=== PATIENT | female | born 1980 | race African-American/Black ===

== ENCOUNTER 2017-05-24 03:59 | Emergency (ER) | payer MEDICAID ==
--- NOTE | 2017-05-24 04:21 | ER Document Report ---
ED Respiratory Problem <BECKIE CARPIO - Last Filed: 05/24/17 11:48> - General Mode of Arrival: Wheelchair Information source: Patient - HPI Patient complains to provider of: Chest pain, Short of breath Onset: Last week Duration: Continuous Quality of pain: Sharp Pain Level: 5 Context: Recent long distance trvl. denies: Recent immobilization Chest pain/discomfort: Left Cough: Nonproductive Associated symptoms: Chest pain/discomfort, Difficulty breathing. denies: Bloody cough, Fever, Sore Throat, Wheezing Similar symptoms previously: No Recently seen / treated by doctor: No <MARIANA EATON - Last Filed: 05/25/17 07:23> - General Chief Complaint: Shortness Of Breath Stated Complaint: CHEST PAIN/SHORTNESS OF BREATH Time Seen by Provider: 05/24/17 04:19 Notes: Patient states that she has had chest pain to left breast that goes to her left back area for the past week. Patient also reports difficulty breathing the past week. Patient reports today that she had dizziness in which she felt off balance. Patient states she attempted to get out of bed and lost her balance and fell landing on her right hip. Patient complains of right hip pain with standing. Patient does report driving 2 weeks ago from [place]. Patient also reports previous history of DVT in the past. Patient denies any fever. (MARIANA EATON) - Related Data Allergies/Adverse Reactions: No Known Allergies Allergy (Unverified 05/24/17 09:27) Past Medical History - General Information source: Patient - Social History Smoking Status: Never Smoker Frequency of alcohol use: Occasional Drug Abuse: None Occupation: None Lives with: Spouse/Significant other Family History: Reviewed & Not Pertinent, CAD - Past Medical History Cardiac Medical History: Reports: Hx DVT, Hx Hypertension GI Medical History: Reports: Hx Gastroesophageal Reflux Disease Musculoskeltal Medical History: Reports Other - Back pain Past Surgical History: Reports: Hx Orthopedic Surgery - Spinal fusion <MARIANA EATON - Last Filed: 05/25/17 07:23> Review of Systems - Review of Systems Constitutional: No symptoms reported. denies: Fever, Recent illness EENT: No symptoms reported Cardiovascular: Chest pain, Dizziness Respiratory: Cough, Short of breath Gastrointestinal: No symptoms reported. denies: Abdominal pain, Nausea, Vomiting Genitourinary: No symptoms reported Female Genitourinary: No symptoms reported Musculoskeletal: Joint pain - Right hip pain Skin: No symptoms reported Hematologic/Lymphatic: No symptoms reported Neurological/Psychological: No symptoms reported. denies: Lost consciousness <MARIANA EATON - Last Filed: 05/25/17 07:23> Physical Exam - General General appearance: Appears well, Alert In distress: None - HEENT Head: Normocephalic, Atraumatic Eyes: Normal Conjunctiva: Normal Nasal: Normal Mouth/Lips: Normal Mucous membranes: Normal Pharynx: Normal Neck: Normal, Supple. No: Lymphadenopathy - Respiratory Respiratory status: No respiratory distress Chest status: Tender, Pain with deep breathing Breath sounds: Normal Chest palpation: No: Tender - Cardiovascular Rhythm: Tachycardia Heart sounds: S1 appreciated, S2 appreciated Murmur: No Pulses: Normal: Dorsalis pedis - Abdominal Inspection: Normal Distension: No distension Bowel sounds: Normal Tenderness: Nontender Organomegaly: No organomegaly - Back Back: Normal, Scars - lumbar - Extremities General upper extremity: Normal inspection, Normal strength General lower extremity: Tender - right hip, Edema - 1+bilat ankles, Normal strength, Normal temperature Hip: Tender - right posterior hip, Pain with ROM. No: Dislocation, Ecchymosis Ankle: Edema - 1+bilat ankles Foot: Normal - Neurological Neuro grossly intact: Yes Cognition: Normal Orientation: AAOx4 [place] Coma Scale Eye Opening: Spontaneous [place] Coma Scale Verbal: Oriented [place] Coma Scale Motor: Obeys Commands [place] Coma Scale Total: 15 - Psychological Associated symptoms: Normal affect, Normal mood - Skin Skin Temperature: Warm Skin Moisture: Dry Skin Color: Normal <MARIANA EATON - Last Filed: 05/25/17 07:23> - Vital signs Vitals: Temp Pulse Resp BP Pulse Ox 98.5 F 105 H 22 H 129/84 H 96 05/24/17 03:59 05/24/17 03:59 05/24/17 03:59 05/24/17 03:59 05/24/17 03:59 Course - Laboratory Result Diagrams: 05/24/17 04:07 05/24/17 04:07 <BECKIE CARPIO - Last Filed: 05/24/17 11:48> - Laboratory Result Diagrams: 05/24/17 04:07 05/24/17 04:07 <MARIANA EATON - Last Filed: 05/25/17 07:23> - Re-evaluation Re-evalutation: 05/24/17 11:36 Venous Doppler was negative for DVT and this was discussed with patient. 05/24/17 11:48 Discussed with patient urinalysis results, will put on antibiotics pending urine culture. Pt states she always gets UTI's. (BECKIE CARPIO) 05/24/17 06:48 Discuss results of patient's diagnostic tests with her. Patient very anxious and concerned that she may have a clot in her leg and wants to have study to confirm she does not have a clot in her leg. Patient also is very hungry requesting a meal tray at this time. Patient with chest pain symptoms for the past week. Patient with a heart score of 1. Patient without any evidence of PE or pneumonia at this time. Patient also advised that she has no evidence concerning for hip fracture. The patient has atypical chest pain as the patient 's chest pain is not suggestive of pulmonary embolus, cardiac ischemia, aortic dissection, or other serious etiology. Given the extremely low risk of these diagnoses for the test in evaluation for these possibilities does not appear to be indicated at this time. 05/24/17 07:13 Bedside report and handout given to hugh Carpio [employer] (MARIANA EATON) - Vital Signs Vital signs: Temp Pulse Resp BP Pulse Ox 98.5 F 88 14 112/74 98 05/24/17 03:59 05/24/17 09:44 05/24/17 11:01 05/24/17 11:01 05/24/17 11:01 - Laboratory Laboratory results interpreted by me: 05/24/17 05/24/17 05/24/17 04:07 04:07 05:02 WBC 16.6 H Hgb 10.6 L Hct 33.0 L MCV 75 L MCH 24.3 L RDW 15.9 H Seg Neutrophils % 91.4 H Lymphocytes % 5.8 L Monocytes % 2.4 L Absolute Neutrophils 15.2 H Glucose 130 H Urine Blood SMALL H Ur Leukocyte Esterase MODERATE H Discharge <BECKIE CARPIO - Last Filed: 05/24/17 11:48> <MARIANA EATON - Last Filed: 05/25/17 07:23> - Discharge Clinical Impression: Chest pain, atypical, Bacteria in urine Contusion of hip, right Qualifiers: Encounter type: initial encounter Qualified Code(s): S70.01XA - Contusion of right hip, initial encounter Condition: Good Disposition: HOME, SELF-CARE Additional Instructions: all tests were normal today except your urine showed blood and bacteria, indicating possible UTI urine culture ordered, takes 3 days for results. Start antibiotics today. push fluids follow up with PCP this week for recheck motrin prn pain, hydrocodone as needed return as needed. Prescriptions: Hydrocodone/Acetaminophen [[place] 5-325 mg Tablet] 1 tab PO QID PRN #15 tablet PRN Reason: Nitrofurantoin Monohyd/M-Cryst [Macrobid 100 mg Capsule] 100 mg PO BID #14 capsule
[2017-05-24] MEDS ORDERED: ASPIRIN 81 MG TABLET, CHEWABLE PO ONE (04:22)
[2017-05-24] MEDS ORDERED: HYDROCODONE/ACETAMINOPHEN 5-325 MG TABLET PO ONE (04:23)
[2017-05-24 04:30] LABS: ABSOLUTE MONOCYTES (AUTO) 0.4 10^3/uL (0.1-1.4); ABSOLUTE NEUT (AUTO) 15.2 10^3/uL (1.7-8.2); BASOPHILS % (AUTO) 0.3 % (0-2); EOSINOPHILS % (AUTO) 0.1 % (0-6); HEMOGLOBIN 10.6 g/dL (12.0-15.5); LYMPHOCYTES % (AUTO) 5.8 % (13-45); MEAN CORPUSCULAR HEMOGLOBIN 24.3 pg (27.0-33.4); MEAN CORPUSCULAR HGB CONC 32.2 g/dL (32.0-36.0); MEAN CORPUSCULAR VOLUME 75 fl (80-97); MONOCYTES % (AUTO) 2.4 % (3-13); PLATELET COUNT 161 10^3/uL (150-450); RED BLOOD COUNT 4.38 10^6/uL (3.72-5.28); RED CELL DISTRIBUTION WIDTH 15.9 % (11.5-14.0); SEGMENTED NEUTROPHILS % (AUTO) 91.4 % (42-78); TOTAL CELLS COUNTED % (AUTO) 100 %; WHITE BLOOD COUNT 16.6 10^3/uL (4.0-10.5)
[2017-05-24 04:44] LABS: INTERNATIONAL RATION (INR) 1.01; PARTIAL THROMBOPLASTIN TIME 30.9 SEC (23.5-35.8)
[2017-05-24 04:45] LABS: ALANINE AMINOTRANSFERASE 21 U/L (9-52); ALBUMIN 4.5 g/dL (3.5-5.0); ALKALINE PHOSPHATASE 91 U/L (38-126); ANION GAP 13 (5-19); ASPARTATE AMINO TRANSFERASE 16 U/L (14-36); BILIRUBIN,DIRECT 0.2 mg/dL (0.0-0.4); BILIRUBIN,TOTAL 0.4 mg/dL (0.2-1.3); BLOOD UREA NITROGEN 14 mg/dL (7-20); CALCIUM 9.9 mg/dL (8.4-10.2); CARBON DIOXIDE 22 mmol/L (22-30); CHLORIDE 105 mmol/L (98-107); CREATINE KINASE 80 U/L (30-135); GLUCOSE 130 mg/dL (75-110); POTASSIUM 4.6 mmol/L (3.6-5.0); SODIUM 140.1 mmol/L (137-145); TOTAL PROTEIN 7.4 g/dL (6.3-8.2)
[2017-05-24 04:56] LABS: CREATINE KINASE MB 0.31 ng/mL (<4.55)
[2017-05-24 05:05] LABS: NT PRO BNP < 11 pg/mL (<125); TROPONIN I < 0.012 ng/mL
--- NOTE | 2017-05-24 05:38 | RADIOLOGY REPORT (SQ) ---
EXAM DESCRIPTION: CHEST PA/LAT CLINICAL HISTORY: 36 years, Female, cp COMPARISON: None. NUMBER OF VIEWS: 2 FINDINGS: Normal lung volume, clear parenchyma, normal cardiac silhouette, and intact bony thorax. IMPRESSION: No acute cardiopulmonary findings.
--- NOTE | 2017-05-24 05:39 | RADIOLOGY REPORT (SQ) ---
EXAM DESCRIPTION: HIP RIGHT AP/LATERAL CLINICAL HISTORY: 36 years, Female, fall, r hip pain COMPARISON: None. NUMBER OF VIEWS: 2 Findings: Bones, joints, and soft tissues of HIP RIGHT AP/LATERAL appear intact. IUD. Lower lumbar hardware fusion. Lumbosacral transitional vertebral body. IMPRESSION: No acute findings.
[2017-05-24 06:23] LABS: APPEARANCE,URINE SLIGHTLY-CLOUDY; BILIRUBIN,URINE NEGATIVE (NEGATIVE); COLOR,URINE YELLOW; GLUCOSE, URINE NEGATIVE (NEGATIVE); KETONES,URINE NEGATIVE (NEGATIVE); LEUKOCYTE ESTERASE,URINE MODERATE (NEGATIVE); NITRITE,URINE NEGATIVE (NEGATIVE); PROTEIN,URINE NEGATIVE (NEGATIVE); URINE SPECIFIC GRAVITY 1.017; UROBILINOGEN,URINE NEGATIVE mg/dL (<2.0)
--- NOTE | 2017-05-24 06:45 | RADIOLOGY REPORT (SQ) ---
EXAM DESCRIPTION: CTA CHEST CLINICAL HISTORY: 36 years Female, cp, dizziness, hx dvt COMPARISON: None. 82 mL Isovue-370 IV contrast. Multiplanar reformat. This exam was performed according to our departmental dose-optimization program, which includes automated exposure control, adjustment of the mA and/or kV according to patient size and/or use of iterative reconstruction technique. [facility]: Dose Right [facility]: CareDose [facility]: Dose Right [facility]: Teradose 4D [facility]: CASTT LIMITATIONS: None. Findings: No pulmonary embolus. No right ventricular strain. Clear lungs. Small hiatal hernia. Lower lumbar hardware fusion partially imaged. Likely benign 1.1 cm left renal cyst not definitively characterized. Inferior neck, axillae, mediastinum, lungs, airway, lymphatics, heart, vasculature, upper abdomen, and musculoskeleton appear unremarkable. Impression: No acute cardiopulmonary findings. No pulmonary embolus.
[2017-05-24] MEDS ORDERED: ONDANSETRON HCL INJ/PF 4 MG/2 ML SDV IV ONE (07:13)
[2017-05-24] MEDS ORDERED: KETOROLAC TROMETHAMINE INJ/PF 30 MG/1 ML SDV IV ONE (07:13)
[2017-05-24] MEDS ORDERED: MORPHINE SULFATE 10 MG/ML INJ IV ONE (08:44)
[2017-05-24] MEDS ORDERED: DIPHENHYDRAMINE HCL 50 MG/ML VIAL IV ONE (10:35)
--- NOTE | 2017-05-24 11:24 | XCELERA REPORT ---
[address] [address] Lower Extremity Venous Evaluation Name: BRUCE VANG Age: 36 yrs Gender: Female : 1980 Patient Status: Emergency Patient Location: ER Study Date: 05/24/2017 10:33 AM Procedure: Color flow and duplex imaging bilaterally of the veins of the lower extremities as well as the Common Femoral veins. Reason For Study: bilat LE pain, hx dvt Ordering Physician: MARIANA EATON Performed By: Carole Anderson Right Sided Venous Evaluation Normal vessel filling wall to wall, compression and augmentation as well as Colour flow down to the infrageniculate veins. Left Sided Venous Evaluation Normal vessel filling wall to wall, compression and augmentation as well as Colour flow down to the infrageniculate veins. Interpretation Summary No duplex evidence of DVT or obstruction in the bilateral lower extremities. : MARIANA EATON > Boo Carvajal
[2017-05-24 11:55] VITALS: BP 112/74
--- NOTE | 2017-05-25 07:58 | EKG REPORT ---
SEVERITY:- NORMAL ECG - SINUS RHYTHM : Confirmed on behalf of: Socrates Leyva MD 25-May-2017 07:58:08
== END 2017-05-24 11:55 | disposition home or self-care (01) ==
LOC: ER 03:59
DX: R07.89 Other chest pain (principal); R06.02 Shortness of breath; R82.71 Bacteriuria; S70.01XA Contusion of right hip, initial encounter; M25.551 Pain in right hip; W19.XXXA Unspecified fall, initial encounter; Y93.89 Activity, other specified; R05 Cough; R42 Dizziness and giddiness; R60.0 Localized edema; I10 Essential (primary) hypertension; Z86.718 Personal history of other venous thrombosis and embolism; Z87.440 Personal history of urinary (tract) infections
CPT/HCPCS: 93005; 99285; 96374; 96375; 36415; 87086; 82553; 82550; 83735; 84703; 85025; 85610; 85730; 80053; 81001; 84484; 83880; 93970 ×2; 71046; 73502; 71275; 93010; J1200; J1885; J2270; J2405

== ENCOUNTER 2018-01-22 18:54 | Emergency (ER) | payer MEDICAID ==
[2018-01-22 19:09] VITALS: BP 123/78
[2018-01-22] MEDS ORDERED: DIAZEPAM INJ 10 MG/2 ML DISP.SYRIN IM ONE (20:14)
--- NOTE | 2018-01-22 20:18 | ER Document Report ---
HPI - HPI Patient complains to provider of: Right-sided back pain Time Seen by Provider: 01/22/18 20:03 Onset: Other - Back pain since 2016 but increased back pain the past 3 days Onset/Duration: Persistent Quality of pain: Achy Severity: Severe Pain Level: 5 Context: Presents emergency department with complaints of right-sided low back pain that radiates down her right leg. Patient denies trauma. Denies urinary bowel incontinence or retention. Patient reports she has spinal surgery in 2016. Since that time she has had back pain. She reports for the past 3 days she has been laying in bed because her back hurts. She is taken multiple over-the- counter meds. She is taken her 's Endocet. She is taking muscle relaxers without relief of symptoms. She denies other symptoms such as fever vomiting diarrhea. Denies history of IV drug use. Reports she recently moved here from [place]. She has not established herself with a primary care provider. Associated Symptoms: None Exacerbated by: Movement, Walking Relieved by: Denies Similar symptoms previously: Yes Recently seen / treated by doctor: No - CONSTITUTIONAL Constitutional: DENIES: Fever, Chills - EENT EENT: DENIES: Sore Throat, Ear Pain, Eye problems - CARDIOVASCULAR Cardiovascular: DENIES: Chest pain - RESPIRATORY Respiratory: DENIES: Trouble Breathing, Coughing - MUSCULOSKELETAL Musculoskeletal: DENIES: Extremity pain Past Medical History - General Information source: Patient - Social History Smoking Status: Never Smoker Cigarette use (# per day): No Frequency of alcohol use: Occasional Drug Abuse: None Lives with: Family Family History: Reviewed & Not Pertinent, CAD Patient has suicidal ideation: No Patient has homicidal ideation: No - Past Medical History Cardiac Medical History: Reports: Hx DVT, Hx Hypertension Renal/ Medical History: Denies: Hx Peritoneal Dialysis GI Medical History: Reports: Hx Gastroesophageal Reflux Disease Past Surgical History: Reports: Hx Orthopedic Surgery - Spinal fusion Vertical Provider Document - CONSTITUTIONAL Agree With Documented VS: Yes Exam Limitations: No Limitations General Appearance: WD/WN, Mild Distress - winces with movement - INFECTION CONTROL TRAVEL OUTSIDE OF THE [place] IN LAST 30 DAYS: No - HEENT HEENT: Atraumatic, Normocephalic - NECK Neck: Normal Inspection, Supple. negative: Lymphadenopathy-Left, Lymphadenopathy-Right - RESPIRATORY Respiratory: Breath Sounds Normal, No Respiratory Distress, Chest Non-Tender - CARDIOVASCULAR Cardiovascular: Regular Rate, Regular Rhythm - GI/ABDOMEN Gastrointestinal: Abdomen Soft, Abdomen Non-Tender - BACK Back: Normal Inspection - No obvious deformity no erythema no swelling no warmth complains of tenderness to the right lower back radiating down her right buttock down her right leg. Positive straight leg test at 30 degrees. Good pedal pulses. good Distal movement and sensation no vertebral tenderness - MUSCULOSKELETAL/EXTREMETIES Musculoskeletal/Extremeties: MAEW, FROM - NEURO Level of Consciousness: Awake, Alert, Appropriate Motor/Sensory: No Motor Deficit - DERM Integumentary: Warm, Dry Adult Front & Back Diagram: 1 - reports pain with palpation 2 - radiates down leg Course - Re-evaluation Re-evalutation: 01/22/18 21:08 Patient was treated with IM Valium and given a prescription for Percocet for pain. Patient was also instructed on the importance of follow-up with primary care provider here in [facility] for referral to spinal specialist. Patient verbalized understanding to all instructions. Patient was also instructed on red flags of back pain and to return immediately for any of those symptoms. Patient and her verbalized understanding. Dictation of this chart was performed using voice recognition software; therefore, there may be some unintended grammatical errors. - Vital Signs Vital signs: Temp Pulse Resp BP Pulse Ox 98.4 F 104 H 18 123/78 97 01/22/18 19:06 01/22/18 19:06 01/22/18 19:06 01/22/18 19:06 01/22/18 19:06 Discharge - Discharge Clinical Impression: Right-sided low back pain with right-sided sciatica Qualifiers: Chronicity: acute Qualified Code(s): M54.41 - Lumbago with sciatica, right side Condition: Stable Disposition: HOME, SELF-CARE Instructions: Family Physicians / Practices, Oral Narcotic Medication ([facility]), Pain Medication Injection ([facility]), Sciatica ([facility]), Warm Packs ([facility]) Additional Instructions: *You have been evaluated for back pain, sciatica *Take medication as prescribed *Rest/ heat as directed *Follow up with a primary care provider Thursday *Return to ED for worsening condition, changes, needs Prescriptions: Oxycodone HCl/Acetaminophen [Percocet 5-325 mg Tablet] 1 tab PO ASDIR PRN #15 tablet PRN Reason: Forms: Elevated Blood Pressure
== END 2018-01-22 20:41 | disposition home or self-care (01) ==
LOC: ER 18:54
DX: M54.41 Lumbago with sciatica, right side (principal); Z79.899 Other long term (current) drug therapy; Z98.1 Arthrodesis status
CPT/HCPCS: 99283; 96372; J3360